=== PATIENT | male | born 1970 | race Caucasian/White ===

== ENCOUNTER → 2017-02-27 | Day surgery (SDC) | payer BC ==
[~2017-02-27] MED LIST: INHALER; KETO10 PO; KETOROLAC TROMETHAMINE 30 MG/ML (IVP) VIAL IV PUSH ONE; LACTATED RINGER'S 1000 ML INJ 1,000 ML ONE; LEXA20TA PO; LIDOCAINE 1%/EPINEPHrine 1:100,000 SOLN 20 ML VIAL ONE; LORT5TAB PO; MIDAZOLAM HCL 2 MG/2 ML VIAL ONE; MONT10TA2 PO; MONT4CHW2; ONDANSETRON HCL 4 MG/2 ML VIAL IV PUSH ONE; PROPOFOL 200 MG/20 ML AMP IV ONE; ZOCO10TA PO
--- NOTE | 2017-02-27 10:58 | TN ---
cc: PRADEEP GARNICA M.D. DATE OF SURGERY: 02/27/2017 PREOPERATIVE DIAGNOSIS Large lipomatous mass in the intramuscular right upper extremity 7.6 x 8.6 x 14.7 cm. POSTOPERATIVE DIAGNOSIS Large lipomatous mass in the intramuscular right upper extremity 7.6 x 8.6 x 14.7 cm. PROCEDURE Excision of large lipomatous intramuscular deep mass right upper extremity 7.6 x 8.6 x 14.7 cm with multilayer closure. SURGEON Dr. 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 INDICATION This is a very pleasant 46-year-old gentleman who has noted asymmetric growth in the right triceps versus left triceps area. Imaging by his primary care doctor demonstrated benign characteristics of a fatty tumor in the size descried above within his triceps musculature. The patient was desirous of surgical excision. INTRAOPERATIVE FINDINGS Large benign-appearing lipomatous mass removed and sent to pathology. ESTIMATED BLOOD LOSS Less than 5 mL. DESCRIPTION OF PROCEDURE IN DETAIL The patient was identified as Charanjit Dejesus, taken to the operating room and placed in the supine position. Following induction of adequate general anesthesia with a laryngeal mask and placement of sequential compression devices on bilateral lower extremities, the right upper extremity was prepped and draped in the usual sterile fashion with Betadine. A timeout procedure was performed. Following completion of the timeout procedure to everyone's satisfaction within the room, the proposed incision overlying the right triceps muscle and the palpable mass was made with a marking pen and infiltrated with local anesthetic. The incision was carried out with a scalpel and hemostasis controlled with electrocautery. Dissection continued posteriorly through the superficial fascia overlying the triceps muscle. The muscle was then identified along the muscular fibers. They were spread and electrocautery used to reach the lipomatous mass. Using the surgeon's finger to sweep avascular attachments from the mass and from surrounding tissues, the mass was able to be mobilized but it was still too large to remove through the initial incision. The incision was extended in length for several more centimeters after instillation of local anesthetic and the subcutaneous fatty tissue and fascial opening as well as the muscular spread was extended. This then allowed for mobilization of the mass through the wound. Two small vascular attachments were clamped with hemostats and ligated with 3-0 Vicryl ties. The mass was removed in its entirety and passed off the field for pathologic evaluation. The wound was irrigated copiously with saline. There was a small amount of residual fatty tissue that was separate from the mass which was excised using electrocautery. Small bleeding points were controlled with electrocautery. Once the wound was assured to be dry the space where the mass was, was gently approximated with interrupted 2-0 Vicryl sutures. The superficial fascial defect was approximated with running 3-0 Vicryl suture. Interrupted 3-0 Vicryl was placed in the deep dermis and subcutaneous tissue and the skin was approximated with running 4-0 Monocryl subcuticular suture. Dressings were applied with Mastisol, half-inch brown Steri-Strips, gauze, [place]o and [place]. The patient tolerated the procedure without apparent complication. Sponge, needle and instrument counts were correct at the end of the case. MD CORKY Cates/PANKAJ /10:35 AM /10:52 AM
== END | disposition home or self-care (01) ==
LOC: ESDC 07:55
PROVIDERS: ATTEND Surgery Trauma Surgery
DX: D17.21 Benign lipomatous neoplasm of skin and subcutaneous tissue of right arm (principal)
CPT/HCPCS: 00400; 24071; 88304; J1885; J2250; J2405; J3010; J7120; 88305

== ENCOUNTER → 2017-05-18 | Day surgery (SDC) | payer BC ==
[~2017-05-18] MED LIST changes: +ACETAMINOPHEN 1000 MG/100 ML 100 ML IV ONE; -KETOROLAC TROMETHAMINE 30 MG/ML (IVP) VIAL IV PUSH ONE; -LIDOCAINE 1%/EPINEPHrine 1:100,000 SOLN 20 ML VIAL ONE; +LIDOCAINE 1.5%/EPINEPHrine 1:200,000 PF SOLN 30 ML AMP ONE; +ceFAZolin 2 GM PREMIX 50 ML ONE
--- NOTE | 2017-05-18 09:47 | TN ---
cc: LOPEZ GUO MD, DAVID G. M.D. DATE OF SURGERY: 05/18/2017 PREOPERATIVE DIAGNOSIS Bilateral gynecomastia. POSTOPERATIVE DIAGNOSES Bilateral gynecomastia. PROCEDURE Bilateral breast lumpectomy. SURGEON Dr. Rey Pina. 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 ANESTHESIA General with laryngeal mask. INDICATIONS This is a very pleasant 46-year-old gentleman who has noted palpable firm lumps in both breasts slightly lateral to the nipple-areolar complex. He had mammograms in the past which demonstrated findings suggestive of bilateral breast gynecomastia. The patient had tenderness on the left side and desired excision on both sides. INTRAOPERATIVE FINDINGS Thickened fibrous tissue on both sides, more prominent on the left than right. Tissue was sent to pathology for permanent section. ESTIMATED BLOOD LOSS Less than 5 mL. DESCRIPTION OF PROCEDURE IN DETAIL The patient was identified as Charanjit Dejesus, taken to the operating room and placed in supine position. Sequential compression devices were placed on bilateral lower extremities. Following induction of adequate general anesthesia with a laryngeal mask a timeout procedure was performed. Following completion of the timeout procedure to everyone's satisfaction within the room, both breasts were prepped and draped in the usual sterile fashion with Betadine. Palpation demonstrated thickened tissue on the right side between the 6 and 9 o'clock positions just lateral to the areolar edge and on the left side between the 3 and 6 o'clock positions extending a couple of centimeters more lateral. Proposed infra-areolar lateral incisions were made with a marking pen and infiltrated with 0.5% lidocaine with epinephrine. Attention was turned first to the right side. Incision was carried out with a scalpel and hemostasis controlled with cautery. Thickened fibrous tissue was from surrounding tissue using a combination of sharp dissection and electrocautery. The specimen was removed and passed off the field for pathologic evaluation un-oriented. The wound was copiously irrigated with saline. Palpation of the wound ensured that all abnormally thickened fibrous tissue was excised. Small bleeding points were controlled with electrocautery. Some suturing of the tissue together to fill the space was performed with 3-0 Vicryl and then 3-0 Vicryl and 4-0 Monocryl used to close the skin. Attention was then turned to the left side. A mirror image incision was made with a scalpel along the inferolateral areolar edge. Hemostasis was controlled with electrocautery. Dissection continued posteriorly into the breast tissue and the thickened palpably different tissue was from surrounding tissues using combination of sharp dissection and electrocautery. Two additional pieces of thickened fibrous tissue were removed from the left side and all sent separately from the right side for permanent pathologic evaluation. Palpation within the wound demonstrated no additional abnormal tissue. The wound was irrigated copiously with saline. Small bleeding points were controlled with electrocautery. Several 3-0 Vicryl sutures were placed to close the space and the skin was approximated with 3-0 Vicryl and 4-0 Monocryl after additional local anesthetic was placed. Dressings were applied bilaterally with Mastisol, half-inch brown Steri-Strips, gauze and Tegaderm. The patient tolerated the procedures without apparent complication. Sponge, needle and instrument counts were correct at the end of the case. MD CORKY Cates/PANKAJ /9:26 AM /9:34 AM
== END | disposition home or self-care (01) ==
LOC: ESDC 06:33
PROVIDERS: ATTEND Surgery Trauma Surgery
DX: N62 Hypertrophy of breast (principal)
CPT/HCPCS: 00400; 19120; 88305; J0131; J0690; J2250; J2405; J3010; J7120